=== PATIENT | female | born 1965 | race Hispanic/Latino ===

== ENCOUNTER 2017-02-01 15:04 | Emergency (ER) | payer OTHER ==
[2017-02-01 15:15] VITALS: PULSE 87; RESP 16; TEMP 97.4; O2SAT 100
--- NOTE | 2017-02-01 15:31 | ED PDOC ---
HPI: Head Injury Time Seen by Provider: 02/01/17 15:10 Chief Complaint (Nursing): Trauma Chief Complaint (Provider): Head Injury History Per: Patient History/Exam Limitations: no limitations Injury Occurred (Timing): Just Before Arrival Onset/Duration Of Symptoms: Mins (just prior to arrival) Patient States: Fell Striking Head Severity: Moderate Pain Scale Rating Of: 3 Loss Of Consciousness: No Additional Complaint(s): 52 year old female with no pertinent medical history presents to the ED with complaints of a head injury that occurred just prior to arrival. She reports that she was sitting on a rolling chair, and fell backwards out of it, hitting her head on the floor. She denies having any loss of consciousness. She reports that she has a headache (pain scale 3/10), right sided neck pain, active bleeding from her scalp, and denies having any other injuries or medical complaints. Patient denies drinking any alcohol prior to arrival. Patient is declining analgesics for pain relief. Patient's tetanus is not up to date. PMD: Evi Lopez MD. Past Medical History Reviewed: Historical Data, Nursing Documentation, Vital Signs Vital Signs: Last Vital Signs Temp 97.4 F L 02/01/17 15:06 Pulse 87 02/01/17 15:06 Resp 16 02/01/17 15:06 BP 175/97 H 02/01/17 15:06 Pulse Ox 100 02/01/17 15:06 - Medical History PMH: No Chronic Diseases - Surgical History Surgical History: No Surg Hx - Family History Family History: States: No Known Family Hx - Social History Current smoker - smoking cessation education provided: Yes - Allergies Allergies/Adverse Reactions: Allergies Allergy/AdvReac Type Severity Reaction Status Date / Time No Known Allergies Allergy Verified 02/01/17 15:05 Review of Systems ROS Statement: Except As Marked, All Systems Reviewed And Found Negative Musculoskeletal: Positive for: Neck Pain (right sided) Neurological: Positive for: Headache. Negative for: Other (loss of consciousness) Physical Exam - Reviewed Nursing Documentation Reviewed: Yes Vital Signs Reviewed: Yes - Physical Exam Appears: Positive for: Well, Non-toxic, No Acute Distress Head Exam: Positive for: NORMOCEPHALIC. Negative for: ATRAUMATIC (5 cm superficial laceration. 1.5 cm region noted deeper. swelling noted. ) Skin: Positive for: Normal Color, Warm, Dry Eye Exam: Positive for: Normal appearance Neck: Positive for: Normal Cardiovascular/Chest: Positive for: Regular Rate, Rhythm Respiratory: Positive for: Normal Breath Sounds. Negative for: Respiratory Distress Back: Negative for: Vertebral Tenderness (no spinal tenderness of the right lateral neck) Neurologic/Psych: Positive for: Alert, Oriented (3x). Negative for: Motor/ Sensory Deficits - ECG O2 Sat by Pulse Oximetry: 100 (RA) Pulse Ox Interpretation: Normal - CT Scan/US CT head w/o contrast Other Rad Studies (CT/US): Read By Radiologist, Radiology Report Reviewed (see MDM section for findings.) - Progress ED Course And Treament: Patient initially uncooperative but able to be redirected. Refused Tetanus vaccination initially. Upon review of CT results and subsequent repair of head laceration, patient agreeable to Tdap vaccination. Medical Decision Making Medical Decision Makin:10 Initial impression: 52 year old female with a head injury. Initial plan: * CT head w/o contrast * laceration repair * reevaluation 16:25 CT head read and reviewed by radiologist FINDINGS: HEMORRHAGE: No intracranial hemorrhage. BRAIN: Ruelas-white matter differentiation is preserved. There is no mass, mass effect or abnormal extra-axial fluid collection. VENTRICLES: The ventricles are normal in size, shape and configuration. CALVARIUM: There is no calvarial fracture or extracranial soft tissue swelling. PARANASAL SINUSES: There is scattered mucoperiosteal thickening in the ethmoid air cells and mild mucosal thickening in the right frontal sinus. There are small retention cysts/ polyps in the right maxillary sinus. MASTOID AIR CELLS: Predominantly clear. OTHER FINDINGS: None. IMPRESSION: No acute intracranial abnormality. 16:40 Laceration repair. See Procedure section. Upon discussion, patient is agreeable for tetanus vaccination. Scribe Attestation: Documented by Emma Jaimes, acting as a scribe for Dangelo Arteaga PA-C. Provider Scribe Attestation: All medical record entries made by the Scribe were at my direction and personally dictated by me. I have reviewed the chart and agree that the record accurately reflects my personal performance of the history, physical exam, medical decision making, and the department course for this patient. I have also personally directed, reviewed, and agree with the discharge instructions and disposition. Procedures - Time-Out Type of Procedure: laceration repair Site of Procedure: posterior head Correct Patient (with visual ID + MR# on ID Band): Yes Correct Procedure: Yes Correct Site Marked: Yes - Laceration/Wound Repair Posterior Head Wound Length (cm): 5 Wound's Depth, Shape: superficial Wound Explored: clean Betadine Prep?: Yes (2% lidocaine) Wound Repaired With: Amparo Number of Sutures: 3 (amparo) Wound Complexity: Simple Sterile Dressing Applied?: Yes Splint Applied?: No Sling Applied?: No Disposition - Clinical Impression Clinical Impression: Head injury, Laceration - Patient ED Disposition Is Patient to be Admitted: No - Disposition Disposition: Routine/Home Disposition Time: 17:03 Condition: FAIR Additional Instructions: FOLLOW UP WITH PMD IN 7 DAYS FOR REMOVAL OF STAPLE Instructions: Head Injury (ED), Staple Care (ED) 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
--- NOTE | 2017-02-01 16:27 | CT ---
PROCEDURE: CT HEAD WITHOUT CONTRAST. HISTORY: HEAD INJURY COMPARISON: None available. TECHNIQUE: Axial computed tomography images were obtained through the head/brain without intravenous contrast. Radiation dose: Total exam DLP = 983.72 MGy-cm. This CT exam was performed using one or more of the following dose reduction techniques: Automated exposure control, adjustment of the mA and/or kV according to patient size, and/or use of iterative reconstruction technique. FINDINGS: HEMORRHAGE: No intracranial hemorrhage. BRAIN: Ruelas-white matter differentiation is preserved. There is no mass, mass effect or abnormal extra-axial fluid collection. VENTRICLES: The ventricles are normal in size, shape and configuration. CALVARIUM: There is no calvarial fracture or extracranial soft tissue swelling. PARANASAL SINUSES: There is scattered mucoperiosteal thickening in the ethmoid air cells and mild mucosal thickening in the right frontal sinus. There are small retention cysts/polyps in the right maxillary sinus. MASTOID AIR CELLS: Predominantly clear. OTHER FINDINGS: None. IMPRESSION: No acute intracranial abnormality.
[2017-02-01] MEDS ORDERED: Lidocaine 1% w Epi 1:100,000 Inj INFIL ONE (16:41)
[2017-02-01] MEDS ORDERED: Lidocaine 2% w Epi 1:100,000 Inj IJ ONE ×2 (16:42)
[2017-02-01 17:19] VITALS: BP 143/78
== END 2017-02-01 17:18 | disposition home or self-care (01) ==
LOC: H.ER 15:04
DX: S01.01XA Laceration without foreign body of scalp, initial encounter (principal); W08.XXXA Fall from other furniture, initial encounter; Z23 Encounter for immunization

== ENCOUNTER 2017-09-08 12:43 | Emergency (ER) | payer OTHER ==
[2017-09-08 12:56] VITALS: BMI 22.8
[2017-09-08 12:58] VITALS: TEMP 98
[2017-09-08] MEDS ORDERED: Sodium Chloride 0.9% 1,000 ML IV SCH (13:00)
--- NOTE | 2017-09-08 13:03 | ED PDOC ---
HPI:STROKE - Time Time: 13:00 - Historian Historian: Patient - Chief Complaint Chief Complaint: Numbness (Perioral numbness assoc with generalized numbness of both arms and legs. No focal weakness. Denies headaches or dizziness. Sxs started 30 min ago) - Onset Date: 09/08/17 Time: 12:30 - Timing Timing: Currently Symptomatic - Location Location: Difficult to localize - Radiation Radiation: None - Severity of pain Maximum severity:: Mild Severity Current: Mild - TPA Positive for Contraindication: Yes Reason tPA is not being Administered: Sxs do not appear to be manifestation of CVA but rather anxiety NIHSS Stroke Scale - How Severe is the Stroke Level of Consciousness: 0=Alert LOC to Questions: 0=Both comments correct LOC to commands: 0=Obeys both correctly Best Gaze: 0=Normal Visual: 0=No visual loss Facial: 0=Normal Motor Arm - Left: 0=No drift Motor Arm - Right: 0=No drift Motor Leg - Left: 0=No drift Motor Leg - Right: 0=No drift Limb Ataxia: 0=Absent Sensory: 0=Normal Best Language: 0=No aphasia Dysarthia: 0=Normal articulation Extinction & Inattention (Neglect): 0=Normal, no object Score: 0 rTPA Inclusion/Exclusion - Refusal of Treatment Patient Refused Treatment: No - Inclusion Criteria for Altepase Patient is 18 years or Older: Yes The Clinical Diagnosis of Ischemic Stroke That is Causing a Potentially Disabling Neurological Deficit: No Time of Onset is Well Established to be Less Than 270 Minute Before Treatment Would Begin: Yes Risk/Benefit Discussed With Patient/Family Member Present: No Past Medical History Vital Signs: Last Vital Signs Temp 98 F 09/08/17 12:56 Pulse 75 09/08/17 12:56 Resp 22 09/08/17 12:56 BP 147/80 09/08/17 12:56 Pulse Ox 98 09/08/17 12:56 - Medical History PMH: Hypercholesterolemia - Family History Family History: States: Unknown Family Hx - Home Medications Home Medications: Ambulatory Orders Medication Instructions Recorded Non-Formulary 1 ea .ROUTE Q6 #1 ea 09/08/17 Non-Formulary 1 ea .ROUTE Q6 #1 ea 09/08/17 Non-Formulary 1 ea .ROUTE Q6 #1 ea 09/08/17 - Allergies Allergies/Adverse Reactions: Allergies Allergy/AdvReac Type Severity Reaction Status Date / Time No Known Allergies Allergy Verified 02/01/17 15:05 Review of Systems ROS Statement: Except As Marked, All Systems Reviewed And Found Negative Neurological: Positive for: Numbness (generalized) Physical Exam - Reviewed Nursing Documentation Reviewed: Yes Vital Signs Reviewed: Yes - Physical Exam Appears: Positive for: Non-toxic, No Acute Distress Head Exam: Positive for: ATRAUMATIC, NORMAL INSPECTION, NORMOCEPHALIC Skin: Positive for: Normal Color, Warm, DRY Eye Exam: Positive for: EOMI, Normal appearance, PERRL ENT: Positive for: Normal ENT Inspection Neck: Positive for: Normal, Painless ROM Cardiovascular/Chest: Positive for: Regular Rate, Rhythm Respiratory: Positive for: CNT, Normal Breath Sounds Gastrointestinal/Abdominal: Positive for: Normal Exam, Soft Back: Positive for: Normal Inspection Extremity: Positive for: Normal ROM Neurologic/Psych: Positive for: Alert, Oriented. Negative for: Motor/Sensory Deficits - Laboratory Results Result Diagrams: 09/08/17 13:15 09/08/17 13:15 - ECG O2 Sat by Pulse Oximetry: 98 (RA) Pulse Ox Interpretation: Normal - Progress Re-evaluation Time: 13:57 Condition: Improved (Sxs do not appear to represent CVA, CT neg. No focal neuro sxs. Pt states she has had stress at work and feels that sxs can be from stress. ) Medical Decision Making Medical Decision Making: Time: 1311 Plan: -- Type and Screen -- Head CT w/o contrast (CODE STROKE) -- EKG -- CMP -- Hemoglobin -- Lipid Panel -- Troponin -- CBC (with differentials) -- PTT -- Prothrombin Time -- Chest Portable XR -- Sodium Chloride IV 1000 mls/hr -- X Ray Control Equipment Repairer -- IV insertion Time: [address] Results FINDINGS: HEMORRHAGE: No intracranial hemorrhage. BRAIN: No mass effect or edema. No atrophy or chronic microvascular ischemic changes. VENTRICLES: Unremarkable. No hydrocephalus. CALVARIUM: Unremarkable. PARANASAL SINUSES: Chronic ethmoid sinusitis. MASTOID AIR CELLS: Unremarkable as visualized. No inflammatory changes. OTHER FINDINGS: None. IMPRESSION: No evidence of acute infarct. No intracranial hemorrhage. No change from 2016. Incidentally noted chronic ethmoid sinusitis. The findings in this examination were discussed, by telephone, with Dr. Payton at 1:1 p.m. on 09/08/2017. Scribe Attestation: Documented by Diana Humphreys, acting as a scribe for Dr. John Payton. Provider Scribe Attestation: All medical record entries made by the Scribe were at my direction and personally dictated by me. I have reviewed the chart and agree that the record accurately reflects my personal performance of the history, physical exam, medical decision making, and the department course for this patient. I have also personally directed, reviewed, and agree with the discharge instructions and disposition. Disposition - Clinical Impression Clinical Impression: Paresthesia - Patient ED Disposition Is Patient to be Admitted: No Counseled Patient/Family Regarding: Studies Performed, Diagnosis, Need For Followup, Rx Given - Disposition Referrals: Philipp Caro MD [Staff Provider] - Disposition: Routine/Home Disposition Time: 13:59 Condition: FAIR Prescriptions: Non-Formulary 1 ea .ROUTE Q6 #1 ea Non-Formulary 1 ea .ROUTE Q6 #1 ea Non-Formulary 1 ea .ROUTE Q6 #1 ea Instructions: Paresthesias (DC) Forms: [employer] ([place])
--- NOTE | 2017-09-08 13:20 | CT ---
PROCEDURE: CT HEAD WITHOUT CONTRAST. HISTORY: code stroke COMPARISON: 02/01/2017 TECHNIQUE: Axial computed tomography images were obtained through the head/brain without intravenous contrast. Radiation dose: Total exam DLP = 827.11 mGy-cm. This CT exam was performed using one or more of the following dose reduction techniques: Automated exposure control, adjustment of the mA and/or kV according to patient size, and/or use of iterative reconstruction technique. FINDINGS: HEMORRHAGE: No intracranial hemorrhage. BRAIN: No mass effect or edema. No atrophy or chronic microvascular ischemic changes. VENTRICLES: Unremarkable. No hydrocephalus. CALVARIUM: Unremarkable. PARANASAL SINUSES: Chronic ethmoid sinusitis. MASTOID AIR CELLS: Unremarkable as visualized. No inflammatory changes. OTHER FINDINGS: None. IMPRESSION: No evidence of acute infarct. No intracranial hemorrhage. No change from 02/01/2017. Incidentally noted chronic ethmoid sinusitis. The findings in this examination were discussed, by telephone, with Dr. Payton at 1:1 p.m. on 09/08/2017.
[2017-09-08 13:27] LABS: BASO % 0.7 % (0.0-2.0); EOS # 0.1 K/uL (0.0-0.7); EOS % 1.6 % (0.0-4.0); HEMOGLOBIN 14.7 g/dL (12.0-16.0); LYMPH # 2.4 K/uL (1.0-4.3); LYMPH % 33.9 % (20.0-40.0); MEAN CELL VOLUME 89.1 fl (81.0-99.0); MEAN CORPUSCULAR HEMOGLOBIN 29.9 pg (27.0-31.0); MEAN CORPUSCULAR HGB CONC 33.6 g/dL (33.0-37.0); MEAN PLATELET VOLUME 7.6 fl (7.2-11.7); MONO # 0.6 K/uL (0.0-0.8); MONO % 8.2 % (0.0-10.0); NEUT % 55.6 % (50.0-75.0); NRBC % 0.2 % (0.0-0.0); RBC 4.92 Mil/uL (3.80-5.20); RED CELL DISTRIBUTION WIDTH 14.5 % (11.5-14.5); WHITE BLOOD COUNT 7.2 K/uL (4.8-10.8)
[2017-09-08 13:40] LABS: INR 1.1 (0.9-1.2); PROTHROMBIN TIME 12.1 Seconds (9.8-13.1)
[2017-09-08 13:41] LABS: PARTIAL THROMBOPLASTIN TIME 33.8 Seconds (25.6-37.1)
[2017-09-08 13:45] LABS: ALB/GLOB RATIO 1.3 (1.0-2.1); ALBUMIN 4.5 g/dL (3.5-5.0); ALT/SGPT 42 U/L (9-52); AST/SGOT 31 U/L (14-36); BLOOD UREA NITROGEN 18 mg/dl (7-17); CALCIUM 9.7 mg/dL (8.4-10.2); GFR AFRICAN-AMERICAN > 60; GFR NON-AFRICAN AMERICAN > 60; HDL CHOLESTEROL 34 MG/DL (30-70)
[2017-09-08 13:56] LABS: LDL CHOLESTEROL 78 mg/dL (0-129)
[2017-09-08] MEDS ORDERED: Potassium Chloride 20 mEq ER Tab PO ONE (14:07)
[2017-09-08 14:17] VITALS: BP 121/71; PULSE 71; RESP 16; O2SAT 99
--- NOTE | 2017-09-08 14:39 | RAD ---
HISTORY: Code Stroke COMPARISON: No prior. FINDINGS: LUNGS: No active pulmonary disease. PLEURA: No significant pleural effusion identified, no pneumothorax apparent. CARDIOVASCULAR: Normal. OSSEOUS STRUCTURES: No significant abnormalities. VISUALIZED UPPER ABDOMEN: Normal. OTHER FINDINGS: None. IMPRESSION: No active disease.
--- NOTE | 2017-09-09 08:42 | CARD ---
APPROVED REPORT EKG Measurement Heart [id number] <Conclusion> Normal sinus rhythm Normal ECG
== END 2017-09-08 14:46 | disposition home or self-care (01) ==
LOC: H.ER 12:43
DX: R20.2 Paresthesia of skin (principal)